=== PATIENT | female | born 1950 | race Caucasian/White ===

== ENCOUNTER 2017-03-15 13:46 | Outpatient (CLI) | payer BC | END 2017-03-15 16:39 | LOC: D.MAMMO 13:46 | DX: Z12.31 Encounter for screening mammogram for malignant neoplasm of breast (principal) ==

== ENCOUNTER → 2017-05-28 09:56 | Outpatient (CLI) | payer BC | END | disposition home or self-care (01) | LOC: D.US 09:56 | DX: E04.1 Nontoxic single thyroid nodule (principal); R13.10 Dysphagia, unspecified ==